=== PATIENT | male | born 1955 | race African-American/Black ===

== ENCOUNTER 2020-02-17 19:34 | Emergency (ER) | payer MEDICARE ==
[2020-02-17] MEDS ORDERED: methylPREDNISolone Sod Succ/PF 125 MG/2 ML VIAL ONE (20:02)
[2020-02-17] MEDS ORDERED: Sodium Chloride 0.9% 1,000 ML ONE (20:06)
--- NOTE | 2020-02-17 20:21 | RAD ---
PORTABLE UPRIGHT FRONTAL CHEST RADIOGRAPH: Date: 02-17-2020 Comparison: 01-23-18 History: shortness of breath FINDINGS: Stable increased linear interstitial density and pulmonary hyperinflation suggesting COPD. No pneumot horax, pleural fluid, focal consolidation or alveolar edema. Heart and mediastinal contours are stabl e. IMPRESSION: No acute findings. POS: OFF
[2020-02-17 20:27] LABS: #Basophils 0.1 thou/uL (0.0-0.2); #Lymphocytes 0.5 thou/uL (1.20-3.40); #Monocytes 0.7 thou/uL (0.11-0.59); #Neutrophils 6.8 thou/uL (1.40-6.50); %Basophils 1.1 % (0.0-1.0); %Eosinophils 0.3 % (0.0-10.0); %Lymphocytes 6.6 % (21.0-51.0); %Monocytes 8.1 % (0.0-10.0); Hemoglobin 12.6 g/dL (14.0-18.0); Mean Corpuscular HGB CONC 32.1 g/dL (32.0-36.0); Mean Corpuscular Hemoglobin 28.6 pg (27.0-31.0); Mean Corpuscular Volume 89.1 fL (78.0-98.0); Mean Platelet Volume 6.2 fL (7.4-10.4); Platelet Count 285 thou/uL (130-400); RBC Distribution Width 13.2 % (11.5-14.5); Red Blood Cell (RBC) Count 4.42 mill/uL (4.70-6.10); White Blood Cell (WBC) Count 8.1 thou/uL (4.8-10.8)
[2020-02-17 20:42] LABS: ALT (SGPT) 27 U/L (8-55); AST (SGOT) 26 U/L (5-34); Albumin 4.4 g/dL (3.4-4.8); Alkaline Phosphatase 55 U/L (40-110); Anion Gap 15 mmol/L (10-20); BUN (Urea Nitrogen) 10 mg/dL (8.4-25.7); Bilirubin, Total 0.7 mg/dL (0.2-1.2); Calc. Creatinine Clearance 0 mL/min (70-130); Calcium 9.5 mg/dL (7.8-10.44); Carbon Dioxide 35 mmol/L (23-31); Chloride 94 mmol/L (98-107); Estimated GFR-MDRD Greater than 90; Glucose 101 mg/dL (80-115); Potassium 3.9 mmol/L (3.5-5.1); Protein, Total 7.4 g/dL (5.8-8.1); Sodium 140 mmol/L (136-145)
[2020-02-17 20:43] LABS: Bilirubin Negative (Negative); Blood, Urine Negative (Negative); Clarity Clear (Clear); Glucose, Urine (Dipstick) Negative (Negative); Ketone, Urine 40 mg/dL (Negative); Leukocyte Negative (Negative); Nitrite Negative (Negative); Protein, Urine (Dipstick) Negative (Neg-Trace); Urobilinogen 0.2 mg/dL (Less than 2)
== END 2020-02-17 22:24 | disposition home or self-care (01) ==
LOC: MADERS 19:34
DX: J44.1 Chronic obstructive pulmonary disease with (acute) exacerbation (principal); I10 Essential (primary) hypertension; Z87.891 Personal history of nicotine dependence; Z79.51 Long term (current) use of inhaled steroids; Z79.899 Other long term (current) drug therapy
CPT/HCPCS: 36415; 71045; 80053; 81003; 83880; 84484; 85025; 93005; 94760; 96374; J2930; J7050; J7620

== ENCOUNTER 2020-05-07 14:27 | Outpatient (CLI) | payer MEDICARE ==
[2020-05-07 22:55] LABS: HBCM Index 0.05 S/CO (0-0.79); HBSAg Index 0.13 S/CO (0-0.99); Hep A IgM AB Non-Reactive (NonReactive); Hep A IgM S/CO 0.15 S/CO (0-0.79); Hep B Surf Ag Non-Reactive S/CO (NonReactive); Hep C IgG Ab Non-Reactive (NonReactive); Hep C Index 0.07 S/CO (0-0.79); Hepatitis B Core IgM Abs Non-Reactive (NonReactive)
== END 2020-05-07 14:28 | disposition home or self-care (01) ==
LOC: MADLAB 14:27
PROVIDERS: ATTEND Registered Nurse
DX: B19.9 Unspecified viral hepatitis without hepatic coma (principal); J43.9 Emphysema, unspecified
CPT/HCPCS: 80074

== ENCOUNTER 2022-12-21 15:42 | Emergency (ER) | payer MEDICARE ==
[~2022-12-21 15:42] MED LIST: Iopamidol 370 76% 100 ML VIAL ONE; Sodium Chloride 0.9% 1,000 ML BAG ONE
[2022-12-21] MEDS ORDERED: Lorazepam 2 MG/ML VIAL ONE (15:47)
[2022-12-21 16:28] LABS: ALT (SGPT) 14 U/L (8-55); AST (SGOT) 27 U/L (5-34); Albumin 4.5 g/dL (3.4-4.8); Alkaline Phosphatase 65 U/L (40-110); Anion Gap 19 mmol/L (10-20); BUN (Urea Nitrogen) 20 mg/dL (8.4-25.7); Bilirubin, Total 0.5 mg/dL (0.2-1.2); CK (CPK) 74 U/L (30-200); Calc. Creatinine Clearance 0 mL/min (70-130); Calcium 10.5 mg/dL (7.8-10.44); Carbon Dioxide 49 mmol/L (23-31); Estimated GFR 97; Globulin 3.4 g/dL (2.4-3.5); Glucose 73 mg/dL (80-115); Lipase 23 U/L (8-78); Magnesium 2.3 mg/dL (1.6-2.6); Protein, Total 7.9 g/dL (5.8-8.1)
[2022-12-21 16:33] LABS: #Basophils 0.1 thou/uL (0.0-0.2); #Lymphocytes 0.3 thou/uL (1.20-3.40); #Monocytes 0.3 thou/uL (0.11-0.59); #Neutrophils 3.2 thou/uL (1.40-6.50); %Basophils 2.4 % (0.0-1.0); %Eosinophils 0.6 % (0.0-10.0); %Lymphocytes 8.6 % (21.0-51.0); %Monocytes 8.1 % (0.0-10.0); %Neutrophils 80.4 % (42.0-75.0); Hemoglobin 10.6 g/dL (14.0-18.0); Mean Corpuscular HGB CONC 28.3 g/dL (32.0-36.0); Mean Corpuscular Hemoglobin 27.1 pg (27.0-31.0); Mean Corpuscular Volume 95.8 fl (78.0-98.0); Mean Platelet Volume 7.9 fL (7.4-10.4); Platelet Count 185 10x3/uL (130-400); White Blood Cell (WBC) Count 3.9 10x3/uL (4.8-10.8)
[2022-12-21 16:35] LABS: Chloride 86 mmol/L (98-107); Potassium 5.3 mmol/L (3.5-5.1); Sodium 149 mmol/L (136-145)
[2022-12-21 16:48] LABS: Polychromasia SLIGHT = 2-3 cells (100X) (0-2/hpf)
[2022-12-21 16:49] LABS: Anisocytosis SLIGHT = 6-15 cells (100X) (0-5/hpf)
[2022-12-21] MEDS ORDERED: Haloperidol Lactate 5 MG/ML VIAL ONE (17:11)
[2022-12-21 17:22] LABS: SARS-CoV-2 NAA Rapid Test Not Detected (NotDetected)
[2022-12-21] MEDS ORDERED: Sodium Chloride 0.9% 250 ML 250 ML ONE (17:26)
[2022-12-21] MEDS ORDERED: Sodium Chloride 0.9% 100 ML ONE (17:26)
[2022-12-21] MEDS ORDERED: Cefepime 2 GM VIAL ONE (17:26)
[2022-12-21] MEDS ORDERED: Vancomycin 1 GM VIAL ONE (17:26)
[2022-12-21 17:30] LABS: Acetaminophen Less than 10 mcg/mL (10.0-30.0); Alcohol Less than 10.0 mg/dL (Less than 10); Salicylate Less than 8.0 mg/dL (15.0-30.0)
[2022-12-21 17:40] LABS: CO2 Tension (PvCO2) 114.6 mmHg (42.0-51.0)
[2022-12-21 17:41] LABS: Base Excess-Venous 24.8 mmol/L (-2.0 to 3.0); Bicarbonate (HCO3v) 58.4 mmol/L (22.0-28.0); Chloride 92 mmol/L (98-107); Hemoglobin - Calc 14.7 g/dL (14.0-18.0); Potassium 4.4 mmol/L (3.5-5.1); Sodium 142 mmol/L (138-145); T. Carbon Dioxide Greater than 50.0 mmol/L (22.0-28.0); vO2 Saturation-calc 77.2 % (60.0-85.0)
[2022-12-21 17:42] LABS: Calcium, Ionized 1.12 mmol/L (1.15-1.33)
[2022-12-21] MEDS ORDERED: Ipratropium/Albuterol 3 ML NEB ONE (18:20)
[2022-12-21] MEDS ORDERED: Dexamethasone 4 mg/ml Vial ONE (18:20)
[2022-12-21 18:26] LABS: Bilirubin Negative (Negative); Blood, Urine Small (Negative); Clarity Clear (Clear); Glucose, Urine (Dipstick) Negative (Negative); Ketone, Urine 40 mg/dL (Negative); Leukocyte Negative (Negative); Nitrite Negative (Negative); Protein, Urine (Dipstick) Negative (Neg-Trace); Urobilinogen 0.2 mg/dL (Less than 2); pH, Urine 5.5 (5.0-9.0)
[2022-12-21 18:32] LABS: CAUTI Indications for Culture Alt mental st,lethar; Squamous Epithelial 0-3 HPF (0-3)
[2022-12-21 18:33] LABS: Bacteria/HPF Rare-Few HPF (None Seen); Mucous/LPF 1+ LPF (<2+); Urine Culture Reflex No No
[2022-12-21 18:37] LABS: Amphetamine Not Detected (NotDetected); Barbiturates Screen Not Detected (NotDetected); Benzodiazepine Screen Not Detected (NotDetected); Cocaine Metabolite Screen Not Detected (NotDetected); Methadone Not Detected (NotDetected); Methamphetamine Not Detected (NotDetected); Opiate Screen Not Detected (NotDetected); Oxycodone Screen Not Detected (NotDetected); Phencyclidine (PCP) Not Detected (NotDetected); THC/Cannabinoid Screen Not Detected (NotDetected); Tricyclic Screen Not Detected (NotDetected)
[2022-12-21 19:52] LABS: Bicarbonate (HCO3v) 43.2 mmol/L (22.0-28.0); CO2 Tension (PvCO2) 72.6 mmHg (42.0-51.0); Calcium, Ionized 1.02 mmol/L (1.15-1.33); Chloride 95 mmol/L (98-107); Hemoglobin - Calc 11.7 g/dL (14.0-18.0); Potassium 4.4 mmol/L (3.5-5.1); Sodium 142 mmol/L (138-145); T. Carbon Dioxide 45.4 mmol/L (22.0-28.0); vO2 Saturation-calc 84.8 % (60.0-85.0)
== END 2022-12-21 20:39 | disposition short-term general hospital (02) ==
LOC: MADERS 15:42
DX: G93.40 Encephalopathy, unspecified (principal); J96.12 Chronic respiratory failure with hypercapnia; J44.9 Chronic obstructive pulmonary disease, unspecified; E87.0 Hyperosmolality and hypernatremia; I10 Essential (primary) hypertension; F17.210 Nicotine dependence, cigarettes, uncomplicated; Z20.822 Contact with and (suspected) exposure to COVID-19
CPT/HCPCS: 70450; 71045; 74177; 80053; 80306; 80307; 81001; 82330; 82550; 82803; 83605; 83690; 83735; 83880; 84439; 84443; 84484; 85025; 85610; 85730; 87040; 87086; 93005; 94760; 96361; 96365; 96367; 96372; 96375; 99292; J0692; J1100; J1630; J2060; J3370; J3490; J7050; J7620; Q9967